=== PATIENT | male | born 1950 | race Caucasian/White ===

== ENCOUNTER 2017-08-01 18:01 | Inpatient (IN) | payer MEDICARE, MEDICAID ==
[~2017-08-01] VITALS: Ht 180.3 cm; Wt 88.2 kg
[~2017-08-01 18:01] MED LIST: AMLO10TA PO; ASPI-845 PO; ATOR20TA66 PO; CLOP75TA15 PO; FURO-150 PO; LISI-604 PO; METF500T4 PO; METO25TA6 PO; NITR0.4T48 SL; POTA10TA36 PO
[2017-08-01 18:42] LABS: BASOPHILS % (AUTO) 0.6 % (0-1); EOSINOPHILS # (AUTO) 0.1 X10'3 (0-0.9); EOSINOPHILS % (AUTO) 1.8 % (0-6); HEMATOCRIT 48.5 % (42.0-52.0); HEMOGLOBIN 16.4 g/dl (14.0-17.9); LYMPHOCYTES % (AUTO) 28.6 % (21-51); MEAN CORPUSCULAR HEMOGLOBIN 29.7 PG (27.0-31.0); MEAN CORPUSCULAR HGB CONC 33.8 % (33.0-36.5); MEAN CORPUSCULAR VOLUME 87.8 FL (78-98); MEAN PLATELET VOLUME 9.6 FL (7.4-10.4); MONOCYTES # (AUTO) 0.5 X10'3 (0-0.9); MONOCYTES % (AUTO) 6.9 % (2-12); NEUTROPHILS # (AUTO) 4.4 X10'3 (1.8-7.7); NEUTROPHILS % (AUTO) 62.1 % (42-75); PLATELET COUNT 172 X10'3 (140-440); RED BLOOD COUNT 5.53 X10'6 (4.70-6.10); WHITE BLOOD COUNT 7.2 X10'3 (4.5-11.0)
[2017-08-01 18:51] LABS: INR 0.9 INR; PARTIAL THROMBOPLASTIN TIME 26 SECONDS (22-32); PROTHROMBIN TIME 9.4 SECONDS (9.0-12.0)
[2017-08-01 18:59] LABS: ALANINE AMINOTRANSFERASE 30 U/L (12-78); ALBUMIN 3.7 G/DL (3.4-5.0); ALKALINE PHOSPHATASE 134 IU/L (46-116); ANION GAP 9 (8-16); ASPARTATE AMINO TRANSFERASE 20 U/L (10-37); BILIRUBIN,TOTAL 0.2 MG/DL (0.1-1.0); BLOOD UREA NITROGEN 26 MG/DL (7-18); BUN/CREATININE RATIO 21.7 (5.4-32.0); CALCIUM 9.7 MG/DL (8.5-10.1); CHLORIDE 96 MMOL/L (99-107); POTASSIUM 4.8 MMOL/L (3.5-5.1); SODIUM 131 MMOL/L (135-145); TOTAL CARBON DIOXIDE 26.3 MMOL/L (24-32); TOTAL PROTEIN 7.3 G/DL (6.4-8.2); eGFR 61 ML/MIN
[2017-08-01 19:01] LABS: GLUCOSE 600 MG/DL (70-104)
[2017-08-01] MEDS ORDERED: nitroGLYCERIN 0.4mg/hour patch TD ONE (20:15)
[2017-08-01] MEDS ORDERED: normal saline 1000ML IV soln IVB ONE (20:15)
[2017-08-01] MEDS ORDERED: insulin regular, human 10 units/0.1 ml syringe IV ONE (20:15)
[2017-08-01] MEDS ORDERED: aspirin 81mg tab.chew PO ONE (20:15)
[2017-08-01 20:37] LABS: HEMOGLOBIN A1C 11.3 % (4.5-6.2)
[2017-08-01 20:48] LABS: MAGNESIUM 1.9 MG/DL (1.5-2.4)
[2017-08-01] MEDS ORDERED: temazepam 15mg capsule PO PRN (21:00)
[2017-08-01] MEDS ORDERED: METO1TAB12 PO (21:34)
[2017-08-01] MEDS ORDERED: morphine 2 MG/ML inj. syringe IV PRN ×2 (22:15)
[2017-08-01] MEDS: sodium chloride 0.45% 1,000 ML IV SCH (22:15)
[2017-08-01] MEDS ORDERED: metoclopramide 5 mg/ml inj IV PRN (22:15)
[2017-08-01] MEDS ORDERED: glucagon, human recombinant 1mg kit SUBCUT PRN (22:15)
[2017-08-01] MEDS ORDERED: magnesium hydroxide 30ml (MOM) UD suspension PO PRN (22:15)
[2017-08-01] MEDS ORDERED: acetaminophen 650mg rectal suppository RC PRN (22:15)
[2017-08-01] MEDS ORDERED: mag hydrox/Alum hydrox/simeth 30ml oral suspension PO PRN (22:15)
[2017-08-01] MEDS ORDERED: diphenhydrAMINE 25mg capsule PO PRN (22:15)
[2017-08-01] MEDS ORDERED: bisacodyl 10mg suppository rectal RC PRN (22:15)
[2017-08-01] MEDS ORDERED: MESSAGE TO PHARMACY PO ONE (22:15)
[2017-08-01] MEDS ORDERED: HYDROmorphone 1 mg/ml syringe IV PRN ×2 (22:15)
[2017-08-01] MEDS ORDERED: ondansetron/PF 4mg/2ml inj IV PRN (22:15)
[2017-08-01] MEDS ORDERED: HYDROcodone/acetaminophen 5mg/325mg tablet PO PRN (22:15)
[2017-08-01] MEDS ORDERED: diphenhydrAMINE 50 mg/ml inj IV PRN (22:15)
[2017-08-01] MEDS ORDERED: dextrose ORAL solution 15 GM/59 ML bottle PO PRN ×2 (22:15)
[2017-08-01] MEDS ORDERED: acetaminophen 325mg tablet PO PRN ×2 (22:15)
[2017-08-01] MEDS ORDERED: dextrose 50%-water 50ml dispensing syringe IV PRN ×3 (22:15→22:22)
[2017-08-01] MEDS ORDERED: insulin Lispro (HumaLOG) vial - multi-dose SQ ONE ×2 (22:22→23:40)
[2017-08-01 22:49] LABS: LIPASE 296 U/L (73-393); PHOSPHORUS 3.1 MG/DL (2.3-4.5)
[2017-08-01 22:56] LABS: URINE AMPHETAMINE SCREEN NEGATIVE (Neg); URINE BARBITUATE SCREEN NEGATIVE (Neg); URINE BENZODIAZEPINES SCREEN NEGATIVE (Neg); URINE CANNABINOID SCREEN POSITIVE (Neg); URINE COCAINE SCREEN NEGATIVE (Neg); URINE METHADONE SCREEN NEGATIVE (Neg); URINE OPIATE SCREEN NEGATIVE (Neg); URINE PHENCYCLIDINE SCREEN NEGATIVE (Neg)
[2017-08-01 23:37] LABS: OSMOLALITY 300 MOSM/K (280-300)
[2017-08-01] MEDS: insulin Lispro (HumaLOG) vial - multi-dose SQ SCH (23:57)
[2017-08-02] VITALS (8 sets, daily range): BP systolic 125–167; BP diastolic 77–97
[2017-08-02] MEDS: HYDROcodone/acetaminophen 10/325mg tab PO PRN ×2 (02:10→07:54)
[2017-08-02] MEDS: sodium chloride 0.45% 1,000 ML IV SCH ×2 (02:11→16:01)
[2017-08-02] MEDS ORDERED: METO100T14 PO (06:59)
[2017-08-02 07:14] LABS: BASOPHILS # (AUTO) 0.1 X10'3 (0-0.2); BASOPHILS % (AUTO) 0.9 % (0-1); EOSINOPHILS # (AUTO) 0.2 X10'3 (0-0.9); EOSINOPHILS % (AUTO) 3.1 % (0-6); HEMATOCRIT 43.9 % (42.0-52.0); HEMOGLOBIN 15.2 g/dl (14.0-17.9); LYMPHOCYTES # (AUTO) 2.7 X10'3 (1.1-4.8); MEAN CORPUSCULAR HEMOGLOBIN 30.2 PG (27.0-31.0); MEAN CORPUSCULAR HGB CONC 34.5 % (33.0-36.5); MEAN CORPUSCULAR VOLUME 87.5 FL (78-98); MEAN PLATELET VOLUME 9.4 FL (7.4-10.4); MONOCYTES # (AUTO) 0.6 X10'3 (0-0.9); MONOCYTES % (AUTO) 8.9 % (2-12); NEUTROPHILS # (AUTO) 3.6 X10'3 (1.8-7.7); NEUTROPHILS % (AUTO) 50.1 % (42-75); PLATELET COUNT 148 X10'3 (140-440); RED BLOOD COUNT 5.01 X10'6 (4.70-6.10); RED CELL DISTRIBUTION WIDTH 14.3 % (11.5-14.5); WHITE BLOOD COUNT 7.2 X10'3 (4.5-11.0)
[2017-08-02] MEDS: lisinopril 5mg tablet PO SCH (07:17)
[2017-08-02] MEDS: atorvastatin 20mg tablet PO SCH (07:17)
[2017-08-02] MEDS: nitroGLYCERIN 0.4mg/hour patch TD SCH (07:17)
[2017-08-02] MEDS: pantoprazole 40mg Tablet.DR PO SCH (07:18)
[2017-08-02] MEDS: clopidogrel 75mg tablet PO SCH (07:18)
[2017-08-02] MEDS: aspirin 325mg tablet, delayed-release (Ecotrin) PO SCH (07:18)
[2017-08-02] MEDS: metoprolol tartrate 50mg tablet PO SCH (07:18)
[2017-08-02 07:27] LABS: ALANINE AMINOTRANSFERASE 29 U/L (12-78); ALBUMIN 3.2 G/DL (3.4-5.0); ALBUMIN/GLOBULIN RATIO 1.1 (1.1-1.5); ALKALINE PHOSPHATASE 86 IU/L (46-116); ANION GAP 5 (8-16); ASPARTATE AMINO TRANSFERASE 14 U/L (10-37); BILIRUBIN,TOTAL 0.4 MG/DL (0.1-1.0); BLOOD UREA NITROGEN 17 MG/DL (7-18); CALCIUM 8.8 MG/DL (8.5-10.1); CHLORIDE 103 MMOL/L (99-107); GLUCOSE 295 MG/DL (70-104); POTASSIUM 4.1 MMOL/L (3.5-5.1); SODIUM 136 MMOL/L (135-145); TOTAL CARBON DIOXIDE 27.9 MMOL/L (24-32); TOTAL PROTEIN 6.2 G/DL (6.4-8.2); eGFR 75 ML/MIN
[2017-08-02] MEDS: docusate sod 100mg capsule PO SCH ×2 (07:40→20:00)
[2017-08-02] MEDS: insulin Lispro (HumaLOG) vial - multi-dose SQ SCH ×3 (09:53→18:46)
[2017-08-02] MEDS ORDERED: regadenoson 0.4mg/5ml syringe IV PRN (12:30)
[2017-08-02] MEDS ORDERED: aminophylline 250mg/10ml inj. IV PRN (12:30)
[2017-08-02] MEDS ORDERED: metoprolol tartrate 1mg/ml inj IV PRN (12:30)
[2017-08-02] MEDS ORDERED: nitroGLYCERIN 0.4mg SUBLingual tab SL PRN (12:30)
[2017-08-02] MEDS: enoxaparin 30mg/0.3ml syringe SUBCUT SCH ×2 (13:16→21:47)
[2017-08-02] MEDS: enoxaparin 60mg/0.6ml syringe SUBCUT SCH ×2 (13:17→21:47)
[2017-08-02 13:48] LABS: CHOL/HDL RATIO 2.6 (0.00-4.99); CHOLESTEROL 185 MG/DL (0-200); HDL CHOLESTEROL 72 MG/DL (35-60); LDL CHOLESTEROL 76 MG/DL (50-100); TRIGLYCERIDES 259 MG/DL (20-135)
[2017-08-02] MEDS ORDERED: morphine 5 MG/ML injection IV PRN ×2 (16:25→16:26)
[2017-08-02] MEDS ORDERED: insulin glargine (Lantus) pen - multi-dose SQ SCH (21:00)
[2017-08-03] VITALS (11 sets, daily range): BP systolic 134–180; BP diastolic 81–104
[2017-08-03] MEDS: sodium chloride 0.45% 1,000 ML IV SCH ×2 (04:15→13:56)
[2017-08-03 05:23] LABS: BASOPHILS # (AUTO) 0.1 X10'3 (0-0.2); BASOPHILS % (AUTO) 0.8 % (0-1); EOSINOPHILS # (AUTO) 0.2 X10'3 (0-0.9); EOSINOPHILS % (AUTO) 2.5 % (0-6); HEMATOCRIT 48.6 % (42.0-52.0); HEMOGLOBIN 16.3 g/dl (14.0-17.9); LYMPHOCYTES # (AUTO) 2.3 X10'3 (1.1-4.8); LYMPHOCYTES % (AUTO) 31.5 % (21-51); MEAN CORPUSCULAR HEMOGLOBIN 29.4 PG (27.0-31.0); MEAN CORPUSCULAR HGB CONC 33.6 % (33.0-36.5); MEAN CORPUSCULAR VOLUME 87.6 FL (78-98); MEAN PLATELET VOLUME 9.5 FL (7.4-10.4); MONOCYTES # (AUTO) 0.5 X10'3 (0-0.9); MONOCYTES % (AUTO) 7.4 % (2-12); NEUTROPHILS # (AUTO) 4.3 X10'3 (1.8-7.7); NEUTROPHILS % (AUTO) 57.8 % (42-75); PLATELET COUNT 176 X10'3 (140-440); RED BLOOD COUNT 5.55 X10'6 (4.70-6.10); RED CELL DISTRIBUTION WIDTH 14.5 % (11.5-14.5); WHITE BLOOD COUNT 7.4 X10'3 (4.5-11.0)
[2017-08-03 06:08] LABS: ALANINE AMINOTRANSFERASE 39 U/L (12-78); ALBUMIN 3.6 G/DL (3.4-5.0); ALBUMIN/GLOBULIN RATIO 1.1 (1.1-1.5); ALKALINE PHOSPHATASE 95 IU/L (46-116); ANION GAP 10 (8-16); ASPARTATE AMINO TRANSFERASE 20 U/L (10-37); BILIRUBIN,TOTAL 0.4 MG/DL (0.1-1.0); BLOOD UREA NITROGEN 15 MG/DL (7-18); BUN/CREATININE RATIO 16.7 (5.4-32.0); CALCIUM 9.8 MG/DL (8.5-10.1); CHLORIDE 105 MMOL/L (99-107); GLUCOSE 192 MG/DL (70-104); SODIUM 139 MMOL/L (135-145); TOTAL CARBON DIOXIDE 24.5 MMOL/L (24-32); eGFR 85 ML/MIN
[2017-08-03] MEDS: docusate sod 100mg capsule PO SCH (07:14)
[2017-08-03] MEDS: metoprolol tartrate 50mg tablet PO SCH (07:20)
[2017-08-03] MEDS: lisinopril 5mg tablet PO SCH (07:20)
[2017-08-03] MEDS: pantoprazole 40mg Tablet.DR PO SCH (07:20)
[2017-08-03] MEDS: nitroGLYCERIN 0.4mg/hour patch TD SCH (08:00)
[2017-08-03] MEDS ORDERED: regadenoson 0.4mg/5ml syringe IV ONE (09:24)
[2017-08-03] MEDS ORDERED: aminophylline inj. 0 ML IV ONE (09:24)
[2017-08-03] MEDS ORDERED: FLU VACC QS2017-18 36MOS UP/PF 60 MCG/0.5 ML SYRINGE IMVAC ONE (10:00)
[2017-08-03] MEDS ORDERED: ATOR20TA66 PO (13:21)
[2017-08-03] MEDS ORDERED: LISI10TA4 PO (13:29)
[2017-08-03] MEDS: clopidogrel 75mg tablet PO SCH (13:41)
[2017-08-03] MEDS: aspirin 325mg tablet, delayed-release (Ecotrin) PO SCH (13:41)
[2017-08-03] MEDS: atorvastatin 20mg tablet PO SCH (13:41)
[2017-08-03] MEDS: enoxaparin 60mg/0.6ml syringe SUBCUT SCH (13:43)
[2017-08-03] MEDS: enoxaparin 30mg/0.3ml syringe SUBCUT SCH (13:44)
[2017-08-03] MEDS: insulin Lispro (HumaLOG) vial - multi-dose SQ SCH (13:51)
== END 2017-08-03 15:45 | disposition home or self-care (01) | DRG 280 ==
LOC: ER 18:02 → ED HOLD 22:15 → PCU 3S 08-02 01:40
PROVIDERS: ADMIT Family Medicine; ATTEND Internal Medicine
PROC: 4A02XM4 Measurement of Cardiac Total Activity, External Approach (ICD-10-PCS; principal; 2017-08-03)
PROC: 3E073KZ Introduction of Other Diagnostic Substance into Coronary Artery, Percutaneous Approach (ICD-10-PCS; 2017-08-03)
DX: I21.4 Non-ST elevation (NSTEMI) myocardial infarction (principal); E11.00 Type 2 diabetes mellitus with hyperosmolarity without nonketotic hyperglycemic-hyperosmolar coma (NKHHC); I50.32 Chronic diastolic (congestive) heart failure; I11.0 Hypertensive heart disease with heart failure; Z86.74 Personal history of sudden cardiac arrest; I16.1 Hypertensive emergency; E78.5 Hyperlipidemia, unspecified; I25.10 Atherosclerotic heart disease of native coronary artery without angina pectoris; N40.0 Benign prostatic hyperplasia without lower urinary tract symptoms; R09.02 Hypoxemia; F12.90 Cannabis use, unspecified, uncomplicated; Z95.0 Presence of cardiac pacemaker; I25.2 Old myocardial infarction; Z79.899 Other long term (current) drug therapy; Z79.82 Long term (current) use of aspirin; Z79.02 Long term (current) use of antithrombotics/antiplatelets; Z79.84 Long term (current) use of oral hypoglycemic drugs; Z86.73 Personal history of transient ischemic attack (TIA), and cerebral infarction without residual deficits
CPT/HCPCS: 36415; 78452; 80053; 80061; 80305; 81002; 82009; 82948; 83036; 83690; 83735; 83880; 83930; 84100; 84484; 85025; 85610; 85730; 87070; 93005; 93017; 93306; 96361; 96374; 99285; A4565; A9500; J0280; J1650; J1815; J2270; J2405; J7030; Q2037

== ENCOUNTER 2017-10-12 08:39 | Observation (INO) | payer MEDICARE, MEDICAID ==
[~2017-10-12] VITALS: Ht 180.3 cm; Wt 90.0 kg
[~2017-10-12 08:39] MED LIST changes: -AMLO10TA PO; -FURO-150 PO; -LISI-604 PO; +LISI10TA4 PO; +METO100T14 PO; -METO25TA6 PO; -POTA10TA36 PO
[2017-10-12 09:14] LABS: HEMATOCRIT 48.4 % (42.0-52.0); HEMOGLOBIN 15.9 g/dl (14.0-17.9); LYMPHOCYTES % (AUTO) 27.7 % (21-51); MEAN CORPUSCULAR HGB CONC 32.8 % (33.0-36.5); MEAN CORPUSCULAR VOLUME 88.6 FL (78-98); MEAN PLATELET VOLUME 9.3 FL (7.4-10.4); MONOCYTES % (AUTO) 9.1 % (2-12); NEUTROPHILS % (AUTO) 60.8 % (42-75); PLATELET COUNT 194 X10'3 (140-440); RED BLOOD COUNT 5.47 X10'6 (4.70-6.10); RED CELL DISTRIBUTION WIDTH 13.5 % (11.5-14.5); WHITE BLOOD COUNT 8.5 X10'3 (4.5-11.0)
[2017-10-12 09:15] LABS: BASOPHILS # (AUTO) 0.1 X10'3 (0-0.2); BASOPHILS % (AUTO) 0.8 % (0-1); EOSINOPHILS # (AUTO) 0.1 X10'3 (0-0.9); EOSINOPHILS % (AUTO) 1.6 % (0-6); LYMPHOCYTES # (AUTO) 2.4 X10'3 (1.1-4.8); MONOCYTES # (AUTO) 0.8 X10'3 (0-0.9); NEUTROPHILS # (AUTO) 5.1 X10'3 (1.8-7.7)
[2017-10-12] MEDS ORDERED: aspirin 81mg tab.chew PO ONE (09:20)
[2017-10-12] MEDS: nitroGLYCERIN 0.4mg SUBLingual tab SL PRN ×2 (09:23→10:15)
[2017-10-12 09:24] LABS: INR 0.9 INR; PARTIAL THROMBOPLASTIN TIME 26 SECONDS (22-32); PROTHROMBIN TIME 9.6 SECONDS (9.0-12.0)
[2017-10-12 09:28] LABS: ALANINE AMINOTRANSFERASE 22 U/L (12-78); ALBUMIN 3.5 G/DL (3.4-5.0); ALKALINE PHOSPHATASE 81 IU/L (46-116); ANION GAP 10 (8-16); ASPARTATE AMINO TRANSFERASE 13 U/L (10-37); BILIRUBIN,TOTAL 0.4 MG/DL (0.1-1.0); BLOOD UREA NITROGEN 27 MG/DL (7-18); CALCIUM 9.9 MG/DL (8.5-10.1); CHLORIDE 102 MMOL/L (99-107); CREATININE 1.08 MG/DL (0.60-1.10); GLUCOSE 290 MG/DL (70-104); POTASSIUM 4.2 MMOL/L (3.5-5.1); SODIUM 138 MMOL/L (135-145); TOTAL CARBON DIOXIDE 25.6 MMOL/L (24-32); TOTAL PROTEIN 7.1 G/DL (6.4-8.2); eGFR 69 ML/MIN
[2017-10-12] MEDS ORDERED: acetaminophen 325mg tablet PO PRN ×2 (10:30)
[2017-10-12] MEDS ORDERED: normal saline 1000ml 1,000 ML IV SCH (10:30)
[2017-10-12] MEDS ORDERED: morphine 4 MG/ML inj SYRINge IV PRN ×2 (10:30)
[2017-10-12] MEDS ORDERED: nitroGLYCERIN 0.4mg SUBLingual tab SL PRN (10:30)
[2017-10-12] MEDS ORDERED: aspirin 325mg tablet PO ONE (10:30)
[2017-10-12 11:18] LABS: HEMOGLOBIN A1C 10.6 % (4.5-6.2)
[2017-10-12 11:20] LABS: CHOL/HDL RATIO 2.4 (0.00-4.99); CHOLESTEROL 163 MG/DL (0-200); HDL CHOLESTEROL 69 MG/DL (35-60); LDL CHOLESTEROL 65 MG/DL (50-100); TRIGLYCERIDES 155 MG/DL (20-135)
[2017-10-12 14:54] VITALS: BP 167/107
[2017-10-12] MEDS ORDERED: heparin, porcine 5000 units/ml vial SQ SCH (16:00)
[2017-10-12] MEDS ORDERED: metoprolol tartrate 50mg tablet PO SCH ×2 (21:00)
[2017-10-13] MEDS ORDERED: aspirin 325mg tablet, delayed-release (Ecotrin) PO SCH (08:00)
[2017-10-13] MEDS ORDERED: lisinopril 10 MG tablet PO SCH (08:00)
[2017-10-13] MEDS ORDERED: clopidogrel 75mg tablet PO SCH (08:00)
[2017-10-13] MEDS ORDERED: atorvastatin 20mg tablet PO SCH (08:00)
[2017-10-13] MEDS ORDERED: aspirin 81mg tablet.DR PO SCH (08:30)
== END 2017-10-12 14:45 | disposition home or self-care (01) ==
LOC: ER 08:40 → ED HOLD 10:29
PROVIDERS: ADMIT Family Medicine; ATTEND Family Medicine
DX: I25.119 Atherosclerotic heart disease of native coronary artery with unspecified angina pectoris (principal); E11.9 Type 2 diabetes mellitus without complications; E78.5 Hyperlipidemia, unspecified; F12.90 Cannabis use, unspecified, uncomplicated; I11.0 Hypertensive heart disease with heart failure; I50.9 Heart failure, unspecified; I25.2 Old myocardial infarction; K40.90 Unilateral inguinal hernia, without obstruction or gangrene, not specified as recurrent; N40.0 Benign prostatic hyperplasia without lower urinary tract symptoms; Z95.0 Presence of cardiac pacemaker; Z95.1 Presence of aortocoronary bypass graft; Z95.5 Presence of coronary angioplasty implant and graft; Z86.74 Personal history of sudden cardiac arrest; Z86.73 Personal history of transient ischemic attack (TIA), and cerebral infarction without residual deficits; Z85.46 Personal history of malignant neoplasm of prostate; Z82.49 Family history of ischemic heart disease and other diseases of the circulatory system; Z83.3 Family history of diabetes mellitus
CPT/HCPCS: 36415; 71045; 80053; 80061; 82948; 83036; 84484; 85025; 85610; 85730; 96361; 96374; 99285; G0378; J2270; J7030

== ENCOUNTER 2017-11-08 10:54 | Emergency (ER) | payer MEDICARE, MEDICAID ==
[~2017-11-08] VITALS: Ht 180.3 cm; Wt 40.0 kg
[2017-11-08 11:31] LABS: BASOPHILS # (AUTO) 0.1 X10'3 (0-0.2); BASOPHILS % (AUTO) 0.6 % (0-1); EOSINOPHILS # (AUTO) 0.2 X10'3 (0-0.9); EOSINOPHILS % (AUTO) 2.1 % (0-6); HEMATOCRIT 49.4 % (42.0-52.0); HEMOGLOBIN 16.2 g/dl (14.0-17.9); LYMPHOCYTES # (AUTO) 1.6 X10'3 (1.1-4.8); LYMPHOCYTES % (AUTO) 19.4 % (21-51); MEAN CORPUSCULAR HEMOGLOBIN 29.4 PG (27.0-31.0); MEAN CORPUSCULAR HGB CONC 32.7 % (33.0-36.5); MEAN CORPUSCULAR VOLUME 89.9 FL (78-98); MEAN PLATELET VOLUME 9.7 FL (7.4-10.4); MONOCYTES # (AUTO) 0.6 X10'3 (0-0.9); MONOCYTES % (AUTO) 7.5 % (2-12); NEUTROPHILS # (AUTO) 5.7 X10'3 (1.8-7.7); NEUTROPHILS % (AUTO) 70.4 % (42-75); PLATELET COUNT 212 X10'3 (140-440); RED CELL DISTRIBUTION WIDTH 14.7 % (11.5-14.5)
[2017-11-08 11:36] LABS: ALANINE AMINOTRANSFERASE 45 U/L (12-78); ALBUMIN 3.5 G/DL (3.4-5.0); ALBUMIN/GLOBULIN RATIO 1.1 (1.1-1.5); ALKALINE PHOSPHATASE 116 IU/L (46-116); ANION GAP 9 (8-16); ASPARTATE AMINO TRANSFERASE 16 U/L (10-37); BILIRUBIN,TOTAL 0.5 MG/DL (0.1-1.0); BLOOD UREA NITROGEN 20 MG/DL (7-18); BUN/CREATININE RATIO 17.4 (5.4-32.0); CALCIUM 9.9 MG/DL (8.5-10.1); CHLORIDE 102 MMOL/L (99-107); CREATININE 1.15 MG/DL (0.60-1.10); GLUCOSE 300 MG/DL (70-104); POTASSIUM 4.8 MMOL/L (3.5-5.1); SODIUM 139 MMOL/L (135-145); TOTAL CARBON DIOXIDE 27.9 MMOL/L (24-32); TOTAL PROTEIN 6.7 G/DL (6.4-8.2); eGFR 64 ML/MIN
[2017-11-08 11:42] LABS: MAGNESIUM 1.8 MG/DL (1.5-2.4); PARTIAL THROMBOPLASTIN TIME 25 SECONDS (22-32)
[2017-11-08] MEDS ORDERED: isosorbide mononitrate 30mg tab.SR.24H PO STA (12:26)
[2017-11-08] MEDS ORDERED: morphine 4 MG/ML inj SYRINge IV ONE (13:25)
[2017-11-08] MEDS ORDERED: DILT120C62 PO (14:01)
[2017-11-08 14:20] VITALS: BP 146/89
== END 2017-11-08 14:22 | disposition home or self-care (01) ==
LOC: ER 10:54
DX: R07.9 Chest pain, unspecified (principal); R06.00 Dyspnea, unspecified; I25.10 Atherosclerotic heart disease of native coronary artery without angina pectoris; Z95.0 Presence of cardiac pacemaker; I11.0 Hypertensive heart disease with heart failure; I50.9 Heart failure, unspecified; I25.2 Old myocardial infarction; E11.9 Type 2 diabetes mellitus without complications; Z79.82 Long term (current) use of aspirin; Z79.84 Long term (current) use of oral hypoglycemic drugs
CPT/HCPCS: 36415; 71045; 80053; 83735; 83880; 84484; 85025; 85610; 85730; 93005; 96374; 99285; J2270

== ENCOUNTER 2017-11-15 17:16 | Emergency (ER) | payer MEDICARE, MEDICAID ==
[~2017-11-15] VITALS: Ht 180.3 cm; Wt 85.5 kg
[~2017-11-15 17:16] MED LIST changes: +DILT120C62 PO; +METF-436 PO; -METF500T4 PO
[2017-11-15 17:53] LABS: BASOPHILS # (AUTO) 0.1 X10'3 (0-0.2); BASOPHILS % (AUTO) 0.7 % (0-1); EOSINOPHILS # (AUTO) 0.2 X10'3 (0-0.9); HEMATOCRIT 45.9 % (42.0-52.0); HEMOGLOBIN 15.3 g/dl (14.0-17.9); LYMPHOCYTES # (AUTO) 1.8 X10'3 (1.1-4.8); MEAN CORPUSCULAR HEMOGLOBIN 29.3 PG (27.0-31.0); MEAN CORPUSCULAR HGB CONC 33.2 % (33.0-36.5); MEAN CORPUSCULAR VOLUME 88.2 FL (78-98); MEAN PLATELET VOLUME 9.6 FL (7.4-10.4); MONOCYTES # (AUTO) 0.7 X10'3 (0-0.9); MONOCYTES % (AUTO) 8.7 % (2-12); NEUTROPHILS # (AUTO) 4.9 X10'3 (1.8-7.7); NEUTROPHILS % (AUTO) 64.6 % (42-75); PLATELET COUNT 200 X10'3 (140-440); WHITE BLOOD COUNT 7.6 X10'3 (4.5-11.0)
[2017-11-15 18:00] LABS: PARTIAL THROMBOPLASTIN TIME 26 SECONDS (22-32)
[2017-11-15 18:06] LABS: ALANINE AMINOTRANSFERASE 44 U/L (12-78); ALBUMIN 3.3 G/DL (3.4-5.0); ALKALINE PHOSPHATASE 116 IU/L (46-116); ANION GAP 10 (8-16); ASPARTATE AMINO TRANSFERASE 15 U/L (10-37); BILIRUBIN,TOTAL 0.4 MG/DL (0.1-1.0); BLOOD UREA NITROGEN 20 MG/DL (7-18); BUN/CREATININE RATIO 19.4 (5.4-32.0); CALCIUM 9.8 MG/DL (8.5-10.1); CHLORIDE 104 MMOL/L (99-107); CREATININE 1.03 MG/DL (0.60-1.10); GLUCOSE 254 MG/DL (70-104); POTASSIUM 4.2 MMOL/L (3.5-5.1); SODIUM 140 MMOL/L (135-145); TOTAL CARBON DIOXIDE 26.2 MMOL/L (24-32); TOTAL PROTEIN 6.5 G/DL (6.4-8.2); eGFR 72 ML/MIN
[2017-11-15] MEDS ORDERED: potassium Cl 20 mEq SR tablet PO STA (19:16)
[2017-11-15] MEDS ORDERED: furosemide 10 MG/1 ML 10ml inj IV ONE (19:20)
[2017-11-15] MEDS ORDERED: nitroGLYCERIN 0.4mg SUBLingual tab SL PRN (19:20)
[2017-11-15 19:51] LABS: CLARITY,URINE Clear (Clear); COLOR,URINE Yellow (Yellow); GLUCOSE, URINE >=1000 mg/dl (Neg); KETONES,URINE Negative (Neg); LEUKOCYTE ESTERASE ,URINE Negative (Neg); NITRITES, URINE Negative (Neg); OCCULT BLOOD,URINE Negative (Neg); PH,URINE 5.5 (4.8-8.0); PROTEIN,URINE 300 mg/dl (Neg)
[2017-11-15 19:54] LABS: UA COLLECTION TYPE CLN CATCH MIDSTREAM
[2017-11-15] MEDS ORDERED: FLO0.4C PO (20:06)
[2017-11-15 20:07] LABS: BACTERIA,URINE NONE SEEN /HPF (Neg); RBC,URINE NONE SEEN /HPF (0-2); SQUAMOUS EPITHELIAL CELL,UR NONE SEEN /LPF (FEW); WBC,URINE NONE SEEN /HPF (0-4)
[2017-11-15 20:21] VITALS: BP 150/79
== END 2017-11-15 20:25 | disposition home or self-care (01) ==
LOC: ER 17:17
DX: R07.89 Other chest pain (principal); N13.9 Obstructive and reflux uropathy, unspecified; R06.00 Dyspnea, unspecified; I11.0 Hypertensive heart disease with heart failure; I50.9 Heart failure, unspecified; I25.10 Atherosclerotic heart disease of native coronary artery without angina pectoris; I25.2 Old myocardial infarction; E11.9 Type 2 diabetes mellitus without complications; Z98.61 Coronary angioplasty status; Z95.0 Presence of cardiac pacemaker; Z79.82 Long term (current) use of aspirin; Z79.84 Long term (current) use of oral hypoglycemic drugs; Z79.899 Other long term (current) drug therapy
CPT/HCPCS: 36415; 71045; 80053; 81001; 84484; 85025; 85610; 85730; 93005; 96374; 99285; J1940

== ENCOUNTER 2017-12-12 10:14 | Emergency (ER) | payer MEDICARE, MEDICAID ==
[~2017-12-12] VITALS: Ht 180.3 cm; Wt 86.8 kg
[~2017-12-12 10:14] MED LIST changes: +AMIT-106 PO; -DILT120C62 PO; +FLO0.4C PO; +FURO40TA4 PO; +POTA25TA11 PO; +RANO500T3 PO; +SAXA5TAB PO; +SPIR25TA5 PO
[2017-12-12] MEDS ORDERED: aspirin 81mg tab.chew PO ONE (10:35)
[2017-12-12 10:54] LABS: BASOPHILS # (AUTO) 0.1 X10'3 (0-0.2); BASOPHILS % (AUTO) 0.7 % (0-1); EOSINOPHILS # (AUTO) 0.1 X10'3 (0-0.9); EOSINOPHILS % (AUTO) 0.8 % (0-6); HEMATOCRIT 43.7 % (42.0-52.0); HEMOGLOBIN 14.7 g/dl (14.0-17.9); LYMPHOCYTES # (AUTO) 1.4 X10'3 (1.1-4.8); LYMPHOCYTES % (AUTO) 17.8 % (21-51); MEAN CORPUSCULAR HEMOGLOBIN 29.7 PG (27.0-31.0); MEAN CORPUSCULAR HGB CONC 33.6 % (33.0-36.5); MEAN CORPUSCULAR VOLUME 88.4 FL (78-98); MEAN PLATELET VOLUME 8.8 FL (7.4-10.4); MONOCYTES # (AUTO) 0.6 X10'3 (0-0.9); MONOCYTES % (AUTO) 7.7 % (2-12); NEUTROPHILS # (AUTO) 5.8 X10'3 (1.8-7.7); PLATELET COUNT 214 X10'3 (140-440); RED BLOOD COUNT 4.94 X10'6 (4.70-6.10); WHITE BLOOD COUNT 7.9 X10'3 (4.5-11.0)
[2017-12-12 11:09] LABS: ALANINE AMINOTRANSFERASE 42 U/L (12-78); ALBUMIN 3.7 G/DL (3.4-5.0); ALKALINE PHOSPHATASE 136 IU/L (46-116); ANION GAP 9 (8-16); ASPARTATE AMINO TRANSFERASE 33 U/L (10-37); BILIRUBIN,TOTAL 0.5 MG/DL (0.1-1.0); BLOOD UREA NITROGEN 26 MG/DL (7-18); BUN/CREATININE RATIO 20.8 (5.4-32.0); CALCIUM 9.2 MG/DL (8.5-10.1); CHLORIDE 102 MMOL/L (99-107); CREATININE 1.25 MG/DL (0.60-1.10); GLUCOSE 269 MG/DL (70-104); POTASSIUM 4.1 MMOL/L (3.5-5.1); SODIUM 137 MMOL/L (135-145); TOTAL CARBON DIOXIDE 26.2 MMOL/L (24-32); TOTAL PROTEIN 7.3 G/DL (6.4-8.2); eGFR 58 ML/MIN
[2017-12-12] MEDS ORDERED: LORazepam 2 mg/ml vial IV ONE (11:10)
[2017-12-12] MEDS ORDERED: ondansetron/PF 4mg/2ml inj IV ONE (11:10)
[2017-12-12 11:17] LABS: MAGNESIUM 1.9 MG/DL (1.5-2.4)
[2017-12-12 11:18] VITALS: BP 134/79
== END 2017-12-12 12:01 | disposition home or self-care (01) ==
LOC: ER 10:15
DX: R07.9 Chest pain, unspecified (principal); E11.65 Type 2 diabetes mellitus with hyperglycemia; Z79.899 Other long term (current) drug therapy; G89.4 Chronic pain syndrome; I11.0 Hypertensive heart disease with heart failure; I50.9 Heart failure, unspecified; E78.00 Pure hypercholesterolemia, unspecified; I25.2 Old myocardial infarction; I25.10 Atherosclerotic heart disease of native coronary artery without angina pectoris; Z98.62 Peripheral vascular angioplasty status; Z95.0 Presence of cardiac pacemaker; Z95.818 Presence of other cardiac implants and grafts; Z90.79 Acquired absence of other genital organ(s); Z79.84 Long term (current) use of oral hypoglycemic drugs; R10.9 Unspecified abdominal pain
CPT/HCPCS: 36415; 71045; 80053; 83735; 83880; 84484; 85025; 93005; 96374; 96375; 99285; J2060; J2405

== ENCOUNTER 2017-12-15 10:06 | Emergency (ER) | payer MEDICARE, OTHER ==
[~2017-12-15] VITALS: Ht 180.3 cm; Wt 83.9 kg
[2017-12-15 10:39] LABS: BASOPHILS # (AUTO) 0.1 X10'3 (0-0.2); BASOPHILS % (AUTO) 0.7 % (0-1); EOSINOPHILS # (AUTO) 0.1 X10'3 (0-0.9); EOSINOPHILS % (AUTO) 1.1 % (0-6); HEMATOCRIT 45.1 % (42.0-52.0); HEMOGLOBIN 15.2 g/dl (14.0-17.9); LYMPHOCYTES # (AUTO) 1.4 X10'3 (1.1-4.8); LYMPHOCYTES % (AUTO) 14.6 % (21-51); MEAN CORPUSCULAR HEMOGLOBIN 29.4 PG (27.0-31.0); MEAN CORPUSCULAR HGB CONC 33.6 % (33.0-36.5); MEAN CORPUSCULAR VOLUME 87.3 FL (78-98); MEAN PLATELET VOLUME 8.9 FL (7.4-10.4); MONOCYTES # (AUTO) 0.7 X10'3 (0-0.9); MONOCYTES % (AUTO) 7.4 % (2-12); NEUTROPHILS # (AUTO) 7.5 X10'3 (1.8-7.7); NEUTROPHILS % (AUTO) 76.2 % (42-75); PLATELET COUNT 235 X10'3 (140-440); RED BLOOD COUNT 5.16 X10'6 (4.70-6.10); RED CELL DISTRIBUTION WIDTH 15.3 % (11.5-14.5); WHITE BLOOD COUNT 9.9 X10'3 (4.5-11.0)
[2017-12-15 10:48] LABS: PARTIAL THROMBOPLASTIN TIME 25 SECONDS (22-32); PROTHROMBIN TIME 10.5 SECONDS (9.0-12.0)
[2017-12-15 10:52] LABS: ALANINE AMINOTRANSFERASE 51 U/L (12-78); ALBUMIN 3.8 G/DL (3.4-5.0); ALBUMIN/GLOBULIN RATIO 1.1 (1.1-1.5); ALKALINE PHOSPHATASE 140 IU/L (46-116); ANION GAP 11 (8-16); ASPARTATE AMINO TRANSFERASE 27 U/L (10-37); BILIRUBIN,TOTAL 0.5 MG/DL (0.1-1.0); BLOOD UREA NITROGEN 23 MG/DL (7-18); BUN/CREATININE RATIO 17.6 (5.4-32.0); CHLORIDE 101 MMOL/L (99-107); CREATININE 1.31 MG/DL (0.60-1.10); GLUCOSE 226 MG/DL (70-104); SODIUM 140 MMOL/L (135-145); TOTAL CARBON DIOXIDE 28.4 MMOL/L (24-32); TOTAL PROTEIN 7.2 G/DL (6.4-8.2); eGFR 55 ML/MIN
[2017-12-15] MEDS ORDERED: nitroGLYCERIN 0.4mg SUBLingual tab SL PRN (11:00)
[2017-12-15] MEDS ORDERED: NITR0.4T51 SL (12:02)
[2017-12-15] MEDS ORDERED: morphine 4 MG/ML inj SYRINge IV ONE (12:10)
[2017-12-15] MEDS ORDERED: morphine 4 MG/ML inj SYRINge IM ONE (12:20)
[2017-12-15 12:37] VITALS: BP 136/88
== END 2017-12-15 12:38 | disposition home or self-care (01) ==
LOC: ER 10:07
DX: I25.10 Atherosclerotic heart disease of native coronary artery without angina pectoris (principal); I50.9 Heart failure, unspecified; E78.00 Pure hypercholesterolemia, unspecified; I10 Essential (primary) hypertension; I25.2 Old myocardial infarction; E11.9 Type 2 diabetes mellitus without complications; Z98.890 Other specified postprocedural states; Z95.0 Presence of cardiac pacemaker; Z79.82 Long term (current) use of aspirin; Z79.84 Long term (current) use of oral hypoglycemic drugs; Z79.899 Other long term (current) drug therapy
CPT/HCPCS: 36415; 71045; 80053; 83880; 84484; 85025; 85610; 85730; 93005; 96372; 99285; J2270

== ENCOUNTER 2018-04-03 06:47 | Emergency (ER) | payer MEDICARE, MEDICAID ==
[~2018-04-03] VITALS: Ht 180.3 cm; Wt 79.5 kg
[~2018-04-03 06:47] MED LIST changes: -FLO0.4C PO
[2018-04-03] MEDS ORDERED: ondansetron/PF 4mg/2ml inj IV ONE (07:35)
[2018-04-03 07:43] LABS: BASOPHILS # (AUTO) 0.1 X10'3 (0-0.2); BASOPHILS % (AUTO) 0.9 % (0-1); EOSINOPHILS # (AUTO) 0.2 X10'3 (0-0.9); EOSINOPHILS % (AUTO) 2.6 % (0-6); HEMATOCRIT 43.6 % (42.0-52.0); HEMOGLOBIN 14.5 g/dl (14.0-17.9); LYMPHOCYTES # (AUTO) 2.1 X10'3 (1.1-4.8); LYMPHOCYTES % (AUTO) 29.5 % (21-51); MEAN CORPUSCULAR HEMOGLOBIN 29.3 PG (27.0-31.0); MEAN CORPUSCULAR HGB CONC 33.3 % (33.0-36.5); MEAN CORPUSCULAR VOLUME 88.1 FL (78-98); MEAN PLATELET VOLUME 8.6 FL (7.4-10.4); MONOCYTES # (AUTO) 0.6 X10'3 (0-0.9); MONOCYTES % (AUTO) 8.5 % (2-12); NEUTROPHILS # (AUTO) 4.3 X10'3 (1.8-7.7); NEUTROPHILS % (AUTO) 58.5 % (42-75); PLATELET COUNT 203 X10'3 (140-440); RED BLOOD COUNT 4.94 X10'6 (4.70-6.10); RED CELL DISTRIBUTION WIDTH 16.9 % (11.5-14.5); WHITE BLOOD COUNT 7.3 X10'3 (4.5-11.0)
[2018-04-03] MEDS: morphine 4 MG/ML inj SYRINge IV PRN ×2 (07:44→08:13)
[2018-04-03 07:55] LABS: ALANINE AMINOTRANSFERASE 15 U/L (12-78); ALBUMIN 3.5 G/DL (3.4-5.0); ALBUMIN/GLOBULIN RATIO 1.1 (1.1-1.5); ALKALINE PHOSPHATASE 52 IU/L (46-116); ANION GAP 10 (8-16); ASPARTATE AMINO TRANSFERASE 12 U/L (10-37); BILIRUBIN,TOTAL 0.4 MG/DL (0.1-1.0); BLOOD UREA NITROGEN 28 MG/DL (7-18); BUN/CREATININE RATIO 21.7 (5.4-32.0); CALCIUM 9.8 MG/DL (8.5-10.1); CHLORIDE 101 MMOL/L (99-107); CREATININE 1.29 MG/DL (0.60-1.10); GLUCOSE 142 MG/DL (70-104); LIPASE 376 U/L (73-393); POTASSIUM 4.5 MMOL/L (3.5-5.1); SODIUM 137 MMOL/L (135-145); TOTAL CARBON DIOXIDE 26.5 MMOL/L (24-32); TOTAL PROTEIN 6.7 G/DL (6.4-8.2); eGFR 56 ML/MIN
[2018-04-03 08:47] LABS: CLARITY,URINE CLEAR (Clear); COLOR,URINE YELLOW (Yellow); GLUCOSE, URINE NEGATIVE (Neg); KETONES,URINE NEGATIVE (Neg); LEUKOCYTE ESTERASE ,URINE NEGATIVE (Neg); NITRITES, URINE NEGATIVE (Neg); OCCULT BLOOD,URINE NEGATIVE (Neg); PROTEIN,URINE NEGATIVE (Neg); UROBILINOGEN,URINE 0.2 E.U/dL (0.2-1.0)
[2018-04-03] MEDS ORDERED: HYDR-3965 PO (08:56)
[2018-04-03 09:10] LABS: UA COLLECTION TYPE CLN CATCH MIDSTREAM
[2018-04-03 09:17] VITALS: BP 122/62
== END 2018-04-03 09:15 | disposition home or self-care (01) ==
LOC: ER 06:47
DX: K40.90 Unilateral inguinal hernia, without obstruction or gangrene, not specified as recurrent (principal); I11.0 Hypertensive heart disease with heart failure; I50.9 Heart failure, unspecified; I25.10 Atherosclerotic heart disease of native coronary artery without angina pectoris; E78.00 Pure hypercholesterolemia, unspecified; I25.2 Old myocardial infarction; E11.9 Type 2 diabetes mellitus without complications; F12.90 Cannabis use, unspecified, uncomplicated; Z98.61 Coronary angioplasty status; Z95.0 Presence of cardiac pacemaker; Z79.82 Long term (current) use of aspirin; Z79.84 Long term (current) use of oral hypoglycemic drugs; Z79.899 Other long term (current) drug therapy
CPT/HCPCS: 36415; 74176; 80053; 81003; 83690; 85025; 96374; 96375; 99285; J2270; J2405

== ENCOUNTER 2018-05-06 15:15 | Emergency (ER) | payer MEDICARE, MEDICAID ==
[~2018-05-06] VITALS: Ht 180.3 cm; Wt 81.8 kg
[2018-05-06 16:08] VITALS: BP 108/61
[2018-05-06] MEDS ORDERED: morphine 4 MG/ML inj SYRINge IM ONE (18:45)
[2018-05-06] MEDS ORDERED: ondansetron 4mg rapidly disintigrating tab PO ONE (18:45)
== END 2018-05-06 19:46 | disposition home or self-care (01) ==
LOC: ER 15:15
DX: K40.20 Bilateral inguinal hernia, without obstruction or gangrene, not specified as recurrent (principal); I25.10 Atherosclerotic heart disease of native coronary artery without angina pectoris; I11.0 Hypertensive heart disease with heart failure; I50.9 Heart failure, unspecified; E78.00 Pure hypercholesterolemia, unspecified; I25.2 Old myocardial infarction; E11.9 Type 2 diabetes mellitus without complications; F12.90 Cannabis use, unspecified, uncomplicated; Z95.5 Presence of coronary angioplasty implant and graft; Z95.0 Presence of cardiac pacemaker; Z79.82 Long term (current) use of aspirin; Z79.899 Other long term (current) drug therapy
CPT/HCPCS: 99284

== ENCOUNTER 2018-06-21 10:42 | Emergency (ER) | payer MEDICARE, MEDICAID ==
[~2018-06-21] VITALS: Ht 180.3 cm; Wt 77.2 kg
[2018-06-21 10:52] VITALS: BP 146/126
[2018-06-21 11:25] LABS: BASOPHILS # (AUTO) 0.1 X10'3 (0-0.2); BASOPHILS % (AUTO) 0.9 % (0-1); EOSINOPHILS # (AUTO) 0.1 X10'3 (0-0.9); HEMATOCRIT 42.3 % (42.0-52.0); HEMOGLOBIN 14.1 g/dl (14.0-17.9); LYMPHOCYTES # (AUTO) 1.9 X10'3 (1.1-4.8); LYMPHOCYTES % (AUTO) 26.7 % (21-51); MEAN CORPUSCULAR HEMOGLOBIN 30.4 PG (27.0-31.0); MEAN CORPUSCULAR HGB CONC 33.2 % (33.0-36.5); MEAN CORPUSCULAR VOLUME 91.6 FL (78-98); MEAN PLATELET VOLUME 8.3 FL (7.4-10.4); MONOCYTES # (AUTO) 0.5 X10'3 (0-0.9); MONOCYTES % (AUTO) 6.6 % (2-12); NEUTROPHILS # (AUTO) 4.5 X10'3 (1.8-7.7); NEUTROPHILS % (AUTO) 63.8 % (42-75); PLATELET COUNT 236 X10'3 (140-440); RED BLOOD COUNT 4.62 X10'6 (4.70-6.10); RED CELL DISTRIBUTION WIDTH 15.8 % (11.5-14.5); WHITE BLOOD COUNT 7.1 X10'3 (4.5-11.0)
[2018-06-21 11:37] LABS: PARTIAL THROMBOPLASTIN TIME 28 SECONDS (22-32); PROTHROMBIN TIME 9.9 SECONDS (9.0-12.0)
[2018-06-21 11:40] LABS: ALANINE AMINOTRANSFERASE 16 U/L (12-78); ALBUMIN/GLOBULIN RATIO 1.2 (1.1-1.5); ALKALINE PHOSPHATASE 50 IU/L (46-116); ANION GAP 13 (8-16); ASPARTATE AMINO TRANSFERASE 15 U/L (10-37); BILIRUBIN,TOTAL 0.3 MG/DL (0.1-1.0); BLOOD UREA NITROGEN 28 MG/DL (7-18); BUN/CREATININE RATIO 19.9 (5.4-32.0); CALCIUM 10.2 MG/DL (8.5-10.1); CHLORIDE 101 MMOL/L (99-107); CREATININE 1.41 MG/DL (0.60-1.10); GLUCOSE 159 MG/DL (70-104); POTASSIUM 4.9 MMOL/L (3.5-5.1); SODIUM 139 MMOL/L (135-145); TOTAL CARBON DIOXIDE 25.4 MMOL/L (24-32); TOTAL PROTEIN 7.3 G/DL (6.4-8.2); eGFR 50 ML/MIN
== END 2018-06-21 14:46 | disposition left against medical advice (07) ==
LOC: ER 10:42
DX: R07.9 Chest pain, unspecified (principal); Z53.21 Procedure and treatment not carried out due to patient leaving prior to being seen by health care provider
CPT/HCPCS: 36415; 71045; 80053; 84484; 85025; 85610; 85730; 93005

== ENCOUNTER 2018-07-12 04:49 | Emergency (ER) | payer MEDICARE, MEDICAID ==
[~2018-07-12] VITALS: Ht 180.3 cm; Wt 81.0 kg
--- NOTE | 2018-07-12 05:04 | NUR ---
DURING TRIAGE, PT ALSO C/O BILATERAL LOWER EXTREMITY PAIN AND A "DOUBLE HERNIA" THAT WAS CAUSING HIM PAIN, AND THEN STATED THAT THAT WAS THE REASON THAT HE WAS REALLY HERE
--- NOTE | 2018-07-12 05:24 | NUR ---
pt states he took nitro at approx 0300; after 10 min took second nitro, relieved pain somewhat, Does not remember taking third dose.
[2018-07-12 05:45] LABS: BASOPHILS # (AUTO) 0.1 X10'3 (0-0.2); BASOPHILS % (AUTO) 1.2 % (0-1); EOSINOPHILS # (AUTO) 0.2 X10'3 (0-0.9); HEMATOCRIT 38.1 % (42.0-52.0); HEMOGLOBIN 12.7 g/dl (14.0-17.9); LYMPHOCYTES # (AUTO) 2.6 X10'3 (1.1-4.8); LYMPHOCYTES % (AUTO) 31.1 % (21-51); MEAN CORPUSCULAR HEMOGLOBIN 31.2 PG (27.0-31.0); MEAN CORPUSCULAR HGB CONC 33.3 % (33.0-36.5); MEAN CORPUSCULAR VOLUME 93.7 FL (78-98); MEAN PLATELET VOLUME 8.4 FL (7.4-10.4); MONOCYTES # (AUTO) 0.9 X10'3 (0-0.9); MONOCYTES % (AUTO) 11.2 % (2-12); NEUTROPHILS # (AUTO) 4.5 X10'3 (1.8-7.7); NEUTROPHILS % (AUTO) 54.5 % (42-75); PLATELET COUNT 252 X10'3 (140-440); RED BLOOD COUNT 4.07 X10'6 (4.70-6.10); RED CELL DISTRIBUTION WIDTH 14.6 % (11.5-14.5); WHITE BLOOD COUNT 8.3 X10'3 (4.5-11.0)
[2018-07-12 06:04] LABS: ALANINE AMINOTRANSFERASE 19 U/L (12-78); ALBUMIN 3.9 G/DL (3.4-5.0); ALBUMIN/GLOBULIN RATIO 1.2 (1.1-1.5); ALKALINE PHOSPHATASE 47 IU/L (46-116); ANION GAP 11 (8-16); ASPARTATE AMINO TRANSFERASE 13 U/L (10-37); BILIRUBIN,TOTAL 0.3 MG/DL (0.1-1.0); BLOOD UREA NITROGEN 24 MG/DL (7-18); BUN/CREATININE RATIO 17.5 (5.4-32.0); CALCIUM 9.7 MG/DL (8.5-10.1); CHLORIDE 101 MMOL/L (99-107); CREATININE 1.37 MG/DL (0.60-1.10); GLUCOSE 106 MG/DL (70-104); POTASSIUM 4.1 MMOL/L (3.5-5.1); SODIUM 138 MMOL/L (135-145); TOTAL CARBON DIOXIDE 26.3 MMOL/L (24-32); TOTAL PROTEIN 7.2 G/DL (6.4-8.2); eGFR 52 ML/MIN
[2018-07-12 06:07] LABS: TROPONIN I 0.39 NG/ML (0.0-0.05)
[2018-07-12 06:08] LABS: INR 1.1 INR; PARTIAL THROMBOPLASTIN TIME 44 SECONDS (22-32); PROTHROMBIN TIME 11.4 SECONDS (9.0-12.0)
[2018-07-12] MEDS ORDERED: aspirin 81mg tab.chew PO ONE (06:10)
[2018-07-12] MEDS ORDERED: heparin 25,000 UNIT/250ml bag 250 ML IV SCH (06:26)
[2018-07-12] MEDS ORDERED: nitroGLYCERIN-Tridil 50MG/D5W 250 ML IV PRN (06:26)
[2018-07-12] MEDS ORDERED: heparin 10,000 units/1 ML INJ IV PRN (06:30)
[2018-07-12] MEDS ORDERED: heparin 10,000 units/1 ML INJ IV ONE (06:30)
[2018-07-12] MEDS ORDERED: HYDR-4353 PO (09:09)
[2018-07-12 09:36] VITALS: BP 133/54
== END 2018-07-12 09:38 | disposition home or self-care (01) ==
LOC: ER 04:49
DX: R07.89 Other chest pain (principal); R79.89 Other specified abnormal findings of blood chemistry; I25.10 Atherosclerotic heart disease of native coronary artery without angina pectoris; I11.0 Hypertensive heart disease with heart failure; I50.9 Heart failure, unspecified; E78.00 Pure hypercholesterolemia, unspecified; I25.2 Old myocardial infarction; E11.9 Type 2 diabetes mellitus without complications; F12.90 Cannabis use, unspecified, uncomplicated; Z95.5 Presence of coronary angioplasty implant and graft; Z95.0 Presence of cardiac pacemaker; Z98.890 Other specified postprocedural states; Z86.73 Personal history of transient ischemic attack (TIA), and cerebral infarction without residual deficits; Z79.82 Long term (current) use of aspirin; Z79.899 Other long term (current) drug therapy
CPT/HCPCS: 36415; 71045; 80053; 84484; 85025; 85610; 85730; 93005; 96365; 96368; 96376; 99284; J1644; J3490

== ENCOUNTER 2018-12-05 09:59 | Day surgery (SDC) | payer MEDICARE, MEDICAID ==
[2018-12-01 12:39] LABS: BASOPHILS # (AUTO) 0.1 X10'3 (0-0.2); BASOPHILS % (AUTO) 1.9 % (0-1); EOSINOPHILS # (AUTO) 0.1 X10'3 (0-0.9); EOSINOPHILS % (AUTO) 1.7 % (0-6); LYMPHOCYTES # (AUTO) 1.8 X10'3 (1.1-4.8); MEAN CORPUSCULAR HEMOGLOBIN 30.7 PG (27.0-31.0); MEAN CORPUSCULAR HGB CONC 33.9 g/dL (33.0-36.5); MEAN CORPUSCULAR VOLUME 90.5 FL (78-98); MEAN PLATELET VOLUME 8.4 FL (7.4-10.4); MONOCYTES # (AUTO) 0.7 X10'3 (0-0.9); NEUTROPHILS % (AUTO) 64.4 % (42-75); PRE OP HEMATOCRIT 41.3 % (42.0-52.0); PRE OP PLATELET COUNT 254 X10'3 (140-440); RED BLOOD COUNT 4.56 X10'6 (4.70-6.10); RED CELL DISTRIBUTION WIDTH 15.6 % (11.5-14.5)
[2018-12-01 12:46] LABS: ALBUMIN 4.1 G/DL (3.4-5.0); ALBUMIN/GLOBULIN RATIO 1.2 (1.1-1.5); ALKALINE PHOSPHATASE 51 IU/L (46-116); BLOOD UREA NITROGEN 26 MG/DL (7-18); CALCIUM 9.8 MG/DL (8.5-10.1); CHLORIDE 103 MMOL/L (99-107); CREATININE 1.37 MG/DL (0.60-1.10); PRE OP ALT 21 U/L (30-65); PRE OP ANION GAP 9 (8-16); PRE OP AST 14 U/L (10-37); PRE OP BILIRUB, TOTAL 0.3 MG/DL (0.0-1.0); PRE OP GLUCOSE 142 MG/DL (70-104); PRE OP POTASSIUM 4.1 MMOL/L (3.4-5.1); PRE OP SODIUM 139 MMOL/L (135-145); TOTAL PROTEIN 7.6 G/DL (6.4-8.2); eGFR 52 ML/MIN
[2018-12-01 12:52] LABS: PRE OP INR 1.1 INR; PRE OP PROTIME 11.3 SECONDS (9.0-12.0)
[2018-12-05] VITALS (13 sets, daily range): BP systolic 141–181; BP diastolic 80–92
[~2018-12-05] VITALS: Ht 180.3 cm; Wt 77.7 kg
[~2018-12-05 09:59] MED LIST changes: -AMIT-106 PO; -ATOR20TA66 PO; +ATOR40TA PO; +CARV-50 PO; -CLOP75TA15 PO; +DABI150C PO; +GABA-532 PO; +INSU100V12 SQ; -LISI10TA4 PO; -METO100T14 PO; -POTA25TA11 PO; -RANO500T3 PO; -SAXA5TAB PO
[2018-12-05] MEDS ORDERED: famotidine 20mg tablet PO ONE (10:00)
[2018-12-05] MEDS ORDERED: ringers solution, lacted 1,000 ML IV SCH ×3 (10:00→10:32)
[2018-12-05] MEDS ORDERED: DOCUMENT DATE & TIME OF BETA-BLOCKER PO ONE (10:00)
[2018-12-05] MEDS ORDERED: cefazolin/dext.iso 2gm/100 ML IV ONE (10:00)
[2018-12-05] MEDS ORDERED: morphine 4 MG/ML inj SYRINge IV PRN ×3 (10:30→10:35)
[2018-12-05] MEDS ORDERED: proCHLORperazine 10 MG/2 ml inj IV PRN ×2 (10:30→10:35)
[2018-12-05] MEDS ORDERED: ondansetron/PF 4mg/2ml inj IV PRN ×2 (10:30→10:35)
[2018-12-05] MEDS ORDERED: meperidine/PF 25mg/ml syringe IV PRN ×6 (10:30→10:35)
[2018-12-05] MEDS ORDERED: ROPIVAcaine 0.5% (5mg/ml) 30ml vial ONE (10:45)
[2018-12-05] MEDS ORDERED: LIDOcaine 1% 30ml preserv. free vial ONE (10:45)
[2018-12-05] MEDS ORDERED: ketorolac trometh. 30mg/ml inj. ONE ×2 (10:45→13:04)
[2018-12-05] MEDS ORDERED: BUPIVAcaine/PF 2.5 mg/ml (0.25%) 30ml vial ONE (10:45)
[2018-12-05] MEDS ORDERED: midazolam 2 mg/2 ml injection ONE (11:04)
[2018-12-05] MEDS ORDERED: fentaNYL /PF 50mcg/ml 5ml ampule ONE (11:04)
[2018-12-05] MEDS ORDERED: propofol inj 20 ML IV ONE (11:05)
[2018-12-05] MEDS ORDERED: LIDOcaine 2% (20mg/ml) 5ml vial ONE (11:05)
[2018-12-05] MEDS ORDERED: desflurane 240ml liquid inh. IH ONE (11:27)
[2018-12-05] MEDS ORDERED: etomidate 2mg/ml inj. ONE (11:37)
[2018-12-05] MEDS ORDERED: labetalol 20mg/4ml (5mg/ml) syringe IV ONE (12:09)
[2018-12-05] MEDS ORDERED: neostigmine methylsulfate 1 MG/ML 10ml vial ONE (13:01)
[2018-12-05] MEDS ORDERED: glycopyrrolate 0.2mg/ml inj ONE (13:01)
--- NOTE | 2018-12-05 13:09 | NUR ---
Received from OR via , accompanied by Anesthesiologist DR GONZALEZ and report given by Anesthesiolgist. AWAKENS TO VOICE. VITALS STABLE. DRESSINGS DI. KAREN PAIN. ABD SOFT.
[2018-12-05] MEDS ORDERED: HYDROcodone/acetaminophen 10/325mg tab PO ONE (13:30)
[2018-12-05] MEDS: morphine 4 MG/ML inj SYRINge IV PRN ×2 (14:48→16:54)
--- NOTE | 2018-12-05 17:19 | NUR ---
AWAKE AND ORIENTED. VITALS STABLE. DRESSINGS DI. STATES PAIN IMPROVING. WAS UNABLE TO VOID. BLADDER SCAN DID NOT SHOW URINE IN HIS BLADDER AFTER SEVERAL ATTEMPTS AND TWO NURSES ATTEMPTONG. MD GUILHERME MARTÍNEZ. IN AND OUT CATH WAS PERFORMED WITH 350CC CLEAR URINE. PT WENT HOME AT THIS TIME WITH HIS SPOUSE.
== END 2018-12-05 17:19 | disposition home or self-care (01) ==
LOC: PAS 09:59
PROVIDERS: ATTEND Surgery
DX: K40.20 Bilateral inguinal hernia, without obstruction or gangrene, not specified as recurrent (principal); E11.9 Type 2 diabetes mellitus without complications; I25.10 Atherosclerotic heart disease of native coronary artery without angina pectoris; I10 Essential (primary) hypertension; E78.5 Hyperlipidemia, unspecified; F12.90 Cannabis use, unspecified, uncomplicated; Z79.01 Long term (current) use of anticoagulants; Z79.82 Long term (current) use of aspirin; Z95.5 Presence of coronary angioplasty implant and graft; Z86.73 Personal history of transient ischemic attack (TIA), and cerebral infarction without residual deficits; Z86.79 Personal history of other diseases of the circulatory system
CPT/HCPCS: 36415; 49650; 71046; 80053; 82948; 83036; 85025; 85610; 85730; 93005; C1781; J0690; J1885; J2001; J2175; J2250; J2270; J2704; J2710; J3010; J3490; J7120; J2795

== ENCOUNTER 2020-04-20 14:20 | Emergency (ER) | payer MEDICARE, MEDICAID ==
[~2020-04-20] VITALS: Ht 180.3 cm; Wt 90.9 kg
[2020-04-20] MEDS ORDERED: normal saline 1000ML IV soln IVB ONE (18:50)
[2020-04-20 19:10] LABS: BASOPHILS # (AUTO) 0.1 X10'3 (0-0.2); BASOPHILS % (AUTO) 1.2 % (0-1); EOSINOPHILS # (AUTO) 0.1 X10'3 (0-0.9); EOSINOPHILS % (AUTO) 1.3 % (0-6); HEMATOCRIT 40.7 % (42.0-52.0); HEMOGLOBIN 13.5 g/dl (14.0-17.9); LYMPHOCYTES # (AUTO) 1.9 X10'3 (1.1-4.8); LYMPHOCYTES % (AUTO) 20.1 % (21-51); MEAN CORPUSCULAR HEMOGLOBIN 29.5 PG (27.0-31.0); MEAN CORPUSCULAR HGB CONC 33.2 g/dL (33.0-36.5); MEAN PLATELET VOLUME 8.8 FL (7.4-10.4); MONOCYTES % (AUTO) 10.6 % (2-12); NEUTROPHILS # (AUTO) 6.4 X10'3 (1.8-7.7); NEUTROPHILS % (AUTO) 66.8 % (42-75); PLATELET COUNT 242 X10'3 (140-440); RED BLOOD COUNT 4.57 X10'6 (4.70-6.10); RED CELL DISTRIBUTION WIDTH 15.8 % (11.5-14.5); WHITE BLOOD COUNT 9.6 X10'3 (4.5-11.0)
[2020-04-20 19:16] LABS: ALANINE AMINOTRANSFERASE 16 U/L (12-78); ALBUMIN 3.9 G/DL (3.4-5.0); ALBUMIN/GLOBULIN RATIO 1.1 (1.1-1.5); ALKALINE PHOSPHATASE 58 IU/L (46-116); ANION GAP 10 (8-16); ASPARTATE AMINO TRANSFERASE 17 U/L (10-37); BILIRUBIN,TOTAL 0.3 MG/DL (0.1-1.0); BLOOD UREA NITROGEN 29 MG/DL (7-18); BUN/CREATININE RATIO 15.3 (5.4-32.0); CALCIUM 9.6 MG/DL (8.5-10.1); CHLORIDE 102 MMOL/L (99-107); CREATININE 1.89 MG/DL (0.60-1.10); GLUCOSE 152 MG/DL (70-104); SODIUM 137 MMOL/L (135-145); TOTAL CARBON DIOXIDE 24.7 MMOL/L (24-32); TOTAL PROTEIN 7.4 G/DL (6.4-8.2); eGFR 36 ML/MIN
[2020-04-20 19:18] LABS: POTASSIUM 4.7 MMOL/L (3.5-5.1)
[2020-04-20] MEDS ORDERED: ketorolac tromethamine 15mg/ml inj. IV ONE (20:05)
[2020-04-20] MEDS ORDERED: aspirin 81mg tab.chew PO ONE (20:10)
--- NOTE | 2020-04-20 20:10 | NUR ---
Patient complaining of 7/10 headache. Jimmy KNAPP notified. Toradol ordered. Will implement
[2020-04-20] MEDS ORDERED: aminophylline 250mg/10ml inj. IV PRN (20:30)
[2020-04-20] MEDS ORDERED: mag hydrox/Alum hydrox/simeth 30ml oral suspension PO PRN (20:30)
[2020-04-20] MEDS ORDERED: nitroGLYCERIN 0.4mg SUBLingual tab SL PRN ×2 (20:30)
[2020-04-20] MEDS ORDERED: morphine 2 MG/ML inj. syringe IV PRN ×2 (20:30)
[2020-04-20] MEDS ORDERED: regadenoson 0.4mg/5ml syringe IV PRN (20:30)
[2020-04-20] MEDS ORDERED: HYDROcodone/acetaminophen 5mg/325mg tablet PO PRN (20:30)
[2020-04-20] MEDS ORDERED: metoprolol tartrate 1mg/ml inj IV PRN (20:30)
[2020-04-20] MEDS ORDERED: potassium CL 10mEq/100ml bag 100 ML IV PRN ×2 (20:30)
[2020-04-20] MEDS ORDERED: acetaminophen 325mg tablet PO PRN ×2 (20:30)
[2020-04-20] MEDS ORDERED: HYDROcodone/acetaminophen 10/325mg tab PO PRN (20:30)
[2020-04-20] MEDS ORDERED: magnesium 4gm in 100ml NS 100 ML IV PRN (20:30)
[2020-04-20] MEDS ORDERED: magnesium hydroxide 30ml (MOM) UD suspension PO PRN (20:30)
[2020-04-20] MEDS ORDERED: normal saline 1000ml 1,000 ML IV SCH (20:30)
[2020-04-20] MEDS ORDERED: magnesium Cl slow-release 64mg tablet PO PRN (20:30)
[2020-04-20] MEDS ORDERED: potassium Cl 20 mEq SR tablet PO PRN ×2 (20:30)
[2020-04-20] MEDS ORDERED: magnesium 2GM in 50ml NS 50 ML IV PRN (20:30)
[2020-04-20] MEDS ORDERED: ondansetron/PF 4mg/2ml inj IV PRN (20:30)
[2020-04-20] MEDS ORDERED: metoclopramide 5 mg/ml inj IV PRN (20:30)
[2020-04-20] MEDS ORDERED: bisacodyl 10mg suppository rectal RC PRN (20:30)
[2020-04-20] MEDS ORDERED: temazepam 15mg capsule PO PRN (21:00)
[2020-04-20 21:39] LABS: HEMOGLOBIN A1C 7.2 % (4.5-6.2)
[2020-04-20] MEDS ORDERED: dextrose ORAL solution 15 GM/59 ML bottle PO PRN ×2 (23:40)
[2020-04-20] MEDS ORDERED: dextrose 50%-water 50ml dispensing syringe IV PRN ×2 (23:40)
[2020-04-20] MEDS ORDERED: MESSAGE TO PHARMACY PO ONE (23:40)
[2020-04-20] MEDS ORDERED: glucagon, human recombinant 1mg kit SUBCUT PRN (23:40)
[2020-04-20] MEDS: gabapentin 300mg capsule PO SCH (23:55)
[2020-04-21 00:30] LABS: URINE AMPHETAMINE SCREEN NEGATIVE (Neg); URINE BARBITUATE SCREEN NEGATIVE (Neg); URINE BENZODIAZEPINES SCREEN NEGATIVE (Neg); URINE CANNABINOID SCREEN POSITIVE (Neg); URINE COCAINE SCREEN NEGATIVE (Neg); URINE METHADONE SCREEN NEGATIVE (Neg); URINE OPIATE SCREEN NEGATIVE (Neg); URINE PHENCYCLIDINE SCREEN NEGATIVE (Neg)
[2020-04-21 00:33] LABS: CLARITY,URINE CLEAR (Clear); COLOR,URINE YELLOW (Yellow); GLUCOSE, URINE NEGATIVE (Neg); KETONES,URINE NEGATIVE (Neg); LEUKOCYTE ESTERASE ,URINE NEGATIVE (Neg); NITRITES, URINE NEGATIVE (Neg); OCCULT BLOOD,URINE NEGATIVE (Neg); PH,URINE 5.5 (4.8-8.0); PROTEIN,URINE NEGATIVE (Neg); UROBILINOGEN,URINE 0.2 E.U/dL (0.2-1.0)
[2020-04-21 00:38] LABS: UA COLLECTION TYPE CLN CATCH MIDSTREAM
--- NOTE | 2020-04-21 07:03 | NUR ---
Contacted reyes Baum report had been called too notifying her pt was likely leaving AMA.
[2020-04-21] MEDS: gabapentin 300mg capsule PO SCH (07:15)
[2020-04-21 07:33] VITALS: BP 123/64
--- NOTE | 2020-04-21 07:50 | NUR ---
Pt refusing admission as being readied for transfer to unit.
[2020-04-21] MEDS ORDERED: insulin glargine (Lantus) pen - multi-dose SQ SCH (08:00)
[2020-04-21] MEDS ORDERED: dabigatran 150mg capsule PO SCH (08:00)
[2020-04-21] MEDS ORDERED: atorvastatin 20mg tablet PO SCH (08:00)
[2020-04-21] MEDS ORDERED: aspirin 325mg tablet, delayed-release (Ecotrin) PO SCH (08:00)
[2020-04-21] MEDS ORDERED: K and/or MAG REPLACEMENT MC SCH (08:00)
[2020-04-21] MEDS ORDERED: carVEDilol 12.5mg tablet PO SCH (08:00)
[2020-04-21] MEDS ORDERED: furosemide 40mg tablet PO SCH (08:00)
[2020-04-21] MEDS ORDERED: spironolactone 25 MG tablet PO SCH (08:00)
--- NOTE | 2020-04-21 08:00 | NUR ---
Hospitalist Lucio contacted as he is listed as DAY provided. Discussed pt's desire to leave and requesting he inform pt of risks/ benefits associated w/ AMA decision. Dr Valdes stated the EDMD could get AMA documentation completed. Notified EDMD Dozier of need for risk/benefits discussion w/ pt.
--- NOTE | 2020-04-21 08:20 | NUR ---
EDMD discussed risk/benefits w/ pt who initially was refusing to sign. With further discussion by this RN pt did sign AMA documentation.
[2020-04-21] MEDS ORDERED: aspirin 325mg tablet PO SCH (08:30)
--- NOTE | 2020-04-21 09:22 | NUR ---
Pt offered gown as he only had shorts on @ arrival. He refused and was escorted to lobby.
== END 2020-04-21 09:26 | disposition left against medical advice (07) ==
LOC: ER 14:21 → UNDOADMOB 20:29 → ED HOLD 20:29 → UNDODISOB 04-21 09:26
DX: R77.8 Other specified abnormalities of plasma proteins (principal); R11.2 Nausea with vomiting, unspecified; R10.32 Left lower quadrant pain; Z20.828 Contact with and (suspected) exposure to other viral communicable diseases; I25.10 Atherosclerotic heart disease of native coronary artery without angina pectoris; I11.0 Hypertensive heart disease with heart failure; I50.9 Heart failure, unspecified; E78.00 Pure hypercholesterolemia, unspecified; I25.2 Old myocardial infarction; E11.9 Type 2 diabetes mellitus without complications; F12.90 Cannabis use, unspecified, uncomplicated; Z86.73 Personal history of transient ischemic attack (TIA), and cerebral infarction without residual deficits; Z85.9 Personal history of malignant neoplasm, unspecified; Z98.890 Other specified postprocedural states; Z95.0 Presence of cardiac pacemaker; Z79.82 Long term (current) use of aspirin; Z79.4 Long term (current) use of insulin; Z79.899 Other long term (current) drug therapy
CPT/HCPCS: 36415; 71045; 80053; 80305; 81003; 82948; 83036; 83880; 84484; 85025; 87635; 93005; 96361; 96374; 99285; C9803; J1885; J7030; G0378; J1815